=== PATIENT | male | born 1940 ===

== ENCOUNTER 2019-09-18 15:49 | Inpatient (IN) | payer OTHER ==
[~2019-09-18] VITALS: Ht 172.7 cm; Wt 72.6 kg
[2019-09-18] MEDS ORDERED: LOSARTAN-HCTZ1 EAC2 (16:14)
[2019-09-18] MEDS ORDERED: ALTACE10 MG (16:15)
[2019-09-18] MEDS ORDERED: METOPROLOL (16:16)
[2019-09-18] MEDS ORDERED: NORVASC10 MG (16:16)
== END 2019-09-20 17:25 | disposition left against medical advice (07) | DRG 65 ==
LOC: ER 15:49 → SURH 23:13 → MEDJ 23:13 → SURH 23:33
PROVIDERS: ADMIT Internal Medicine
PROC: B030ZZZ Magnetic Resonance Imaging (MRI) of Brain (ICD-10-PCS; 2019-09-18)
PROC: B345ZZZ Ultrasonography of Bilateral Common Carotid Arteries (ICD-10-PCS; 2019-09-18)
PROC: B348ZZZ Ultrasonography of Bilateral Internal Carotid Arteries (ICD-10-PCS; 2019-09-18)
PROC: B342ZZZ Ultrasonography of Left Subclavian Artery (ICD-10-PCS; 2019-09-18)
PROC: BW28ZZZ Computerized Tomography (CT Scan) of Head (ICD-10-PCS; 2019-09-18)
PROC: 4A12X4Z Monitoring of Cardiac Electrical Activity, External Approach (ICD-10-PCS; principal; 2019-09-19)
PROC: B245ZZZ Ultrasonography of Left Heart (ICD-10-PCS; 2019-09-19)
DX: I63.81 Other cerebral infarction due to occlusion or stenosis of small artery (principal); G81.91 Hemiplegia, unspecified affecting right dominant side; R29.810 Facial weakness; I10 Essential (primary) hypertension; E11.65 Type 2 diabetes mellitus with hyperglycemia; Z79.4 Long term (current) use of insulin
CPT/HCPCS: 70544